=== PATIENT | female | born 1965 | race Caucasian/White ===

== ENCOUNTER 2025-06-16 08:25 | Day surgery (SDC) | payer OTHER ==
[~2025-06-16] VITALS: Ht 165.1 cm; Wt 82.0 kg
[~2025-06-16 08:25] MED LIST: CIPROFLOXACIN 0.3% 5 ML HOME.PACK ONE; IBLOOD GLUCOSE TEST STRIP 1 EA TEST VI PRN; LACTATED RINGER'S 1,000 ML IV SCH; LIDOCAINE HCL 1% 5 ML SDV INJ ONE; ORTHO MICRONO0.35 MG PO
[2025-06-16 09:03] VITALS: BP 142/74
[2025-06-16] MEDS ORDERED: DEXAMETHASONE SOD PHOS 4 MG/ML VIAL ONE (09:35)
[2025-06-16] MEDS ORDERED: KETOROLAC TROMETHAMINE 30 MG/ML VIAL ONE (09:35)
[2025-06-16] MEDS ORDERED: LIDOCAINE HCL 2% 5 ML SDV ONE (09:35)
[2025-06-16] MEDS ORDERED: fentaNYL citrate 100 MCG/2 ML VIAL ONE (09:36)
--- NOTE | 2025-06-16 10:27 | NUR ---
06/16/25 Dori7 Diane Mera 1024-PATIENT ARRIVED TO PACU ON 6L MASK RR EVEN. PATIENT REACTIVE TO VERBAL STIMULI VERY DROWSY COTTON BALL TO RIGHT EAR INTACT. SR HR 60'S. IVF INFUSING.
--- NOTE | 2025-06-16 10:49 | NUR ---
PT ARRIVES TO DS FROM PACU VIA STRETCHER. PT IS A&O AND ASKING APPROPRIATE QUESTIONS AT THIS TIME. PT REPORTS NO PAIN OR NAUSEA. COTTON BALL IN PLACE TO EAR INTACT. PT TOLERATING SIPS OF ICE WATER WITHOUT ANY DIFFICULTY SWALLOWING. PT O2 >90% VIA RA, RESPIRATIONS EVEN AND UNLABORED, NO SIGNS OF DISTRESS. IN HALLWAY NOTIFIED OF IN ROOM. REPORT RECEIVED FROM SOPHIA IGLESIAS, CALL LIGHT WITHIN REACH. PT STATES NO FURTHER NEEDS AT THIS TIME.
[2025-06-16 10:50] VITALS: BP 120/68
--- NOTE | 2025-06-16 10:50 | OR ---
[facility] [address] [place], [place] [address] Signed DATE OF OPERATION: 06/16/2025 SURGEON: Nathan Vann MD PREOPERATIVE DIAGNOSIS: Right serous otitis media. POSTOPERATIVE DIAGNOSIS: Right serous otitis media. PROCEDURE: Right myringotomy and ventilation tube insertion with a Smith tubes. ANESTHESIA: General mask, GM, Amanda. PREOP HISTORY: Promise is a 59-year-old lady with several months history of right ear hearing loss, congestion, exam in the office. An audiogram had shown a middle ear effusion. She is taken to the operating for the above-mentioned procedure. OPERATIVE PROCEDURE AND FINDINGS: After informed consent, the patient was taken to the operating room, placed in supine position where general mask anesthesia was induced. The patient and procedure were verified. The head was turned to the left. Right ear examined with the operating microscope. The eardrum was retracted, dull with a macdonald middle ear effusion. Inferior radial myringotomy was made. The ear canal was very narrow. Serous effusion suctioned from the middle ear space. A Smith tube placed in myringotomy site. Ofloxacin ophthalmic drops applied to the ear canal, cotton ball to the meatus. The patient tolerated the procedure well, was awakened, extubated, transported to recovery room in good condition. No complications. BLOOD LOSS: Minimal. SPECIMEN: None. DRAINS: None. Electronically Signed By: NATHAN VANN MD 06/16/25 1050 PATIENT NAME: PROMISE CONNELL OPERATIVE REPORT DATE OF : 63 REPORT #: [id number] PHYSICIAN: NATHAN VANN MD PCP: NO PRIMARY CARE PHYSICIAN REPORT IS CONFIDENTIAL AND NOT TO BE RELEASED WITHOUT AUTHORIZATION [address] [place], [place] [address] Signed Nathan Vann MD /[facility] /[id number] Copies: ~ Electronically Signed By: NATHAN VANN MD 06/16/25 1050 PATIENT NAME: PROMISE CONNELL OPERATIVE REPORT DATE OF : 63 REPORT #: [id number] PHYSICIAN: NATHAN VANN MD PCP: NO PRIMARY CARE PHYSICIAN REPORT IS CONFIDENTIAL AND NOT TO BE RELEASED WITHOUT AUTHORIZATION
--- NOTE | 2025-06-16 11:33 | NUR ---
PT STATES NEED TO URINE VOID. PT SITS AT BEDSIDE AND REPORTS NO DIZZINESS OR NAUSEA AT THIS TIME. PT AMBULATES TO RESTROOM W/THIS RN STANDBY ASSIST. PT URINE VOIDS UNMEASUREABLE AMOUNT. PT BACK TO ROOM AND GETTING DRESSED. PT GAIT STABLE W/AMBULATION AND STATES NO ASSISTANCE REQUIRED WITH GETTING DRESSED. CALL LIGHT WITHIN REACH.
[2025-06-16 11:39] VITALS: BP 152/69
--- NOTE | 2025-06-16 11:45 | NUR ---
IN PT ROOM FOR VS, ASSESSMENT, AND DC EDUCATION. PT STATES VERBAL UNDERSTANDING OF DC EDUCATION AT THIS TIME AND NO FURTHER QUESTIONS. IV DC'ED, WNL. PT OFF OF UNIT VIA WC TO PASSENGER SIDE OF VEHICLE. ALL BELONGINGS IN PT POSSESSION, INCLUDING PROVIDED EAR DROPS.
[2025-06-16] MEDS ORDERED: SEVOFLURANE 250 ML BTL INH ONE (13:45)
== END 2025-06-16 11:48 | disposition home or self-care (01) ==
LOC: DS 08:25
PROVIDERS: ATTEND Otolaryngology
PROC: 099570Z Drainage of Right Middle Ear with Drainage Device, Via Natural or Artificial Opening (ICD-10-PCS; principal; 2025-06-16 10:00)
DX: H65.91 Unspecified nonsuppurative otitis media, right ear (principal)
CPT/HCPCS: 00126; J1100; J1885; J2003; J2405; J2704; J3010; J7121